=== PATIENT | male | born 1975 | race Caucasian/White ===

== ENCOUNTER → 2017-01-13 | Outpatient (CLI) | payer OTHER ==
--- NOTE | 2017-01-13 12:53 | DI ---
Indication: ITS.REASON: DIAGNOSTIC TESTING PROCEDURE: KNEE LEFT 2 VIEW: Encounter: Initial Comparison: None Findings: There is no acute fracture, dislocation or malalignment identified. Evidence of a bipartite patella or ununited chronic lateral patellar fracture. Joint spaces are normal. Impression: No acute osseous abnormality. .
== END ==
LOC: IMA 11:57
DX: Z02.89 Encounter for other administrative examinations (principal)